=== PATIENT | male | born 1955 | race Caucasian/White ===

== ENCOUNTER 2017-02-05 12:10 | Inpatient (IN) | payer OTHER ==
[~2017-02-05] VITALS: Ht 195.6 cm; Wt 120.0 kg
[~2017-02-05 12:10] MED LIST: ADVIL200 MG PO; ATORVASTATIN CA40 MG PO; CEFTIN500 MG PO; CLOZARIL100 MG PO; COGENTIN0.5 MG PO; Cogentin PO; ELIQUIS5 MG PO; Habitrol,Nicoderm CQ TD; LEVAQUIN500 MG PO; LEVAQUIN750 MG PO; LITE COAT ASPI325 M1 PO; Levaquin PO; NAPROSYN500 MG PO; NICOTINE PATCH1 EAC2 TD; Remove Nicotine Patc TD; Tylenol Regular Stre PO; VENTOLIN HFA18 GM IH; ZOLOFT50 MG PO; Zoloft PO
[2017-02-05 12:38] LABS: HEMATOCRIT 45.7 % (38.0-50.0); MCH 29.7 PG (29.0-34.0); MCHC 33.5 G/DL (30.0-36.0); MCV 88.7 FL (86-99); MEAN PLAT.VOLUME 10.4 uM^3 (9.0-12.4); PLATELET COUNT 188 K/uL (156-360); RBC DIS.WIDTH-CV 13.1 % (11.8-14.6); RBC DIS.WIDTH-SD 42.6 % (39-53); RED BLOOD COUNT 5.15 M/uL (4.00-5.50); WHITE BLOOD COUNT 10.4 K/uL (4.1-10.2)
[2017-02-05 12:50] LABS: CHLORIDE 106 mEq/L (99-109); POTASSIUM 4.1 mEq/L (3.7-5.4); SODIUM 141 mEq/L (136-147)
[2017-02-05 12:51] LABS: GLUCOSE 146 mg/dL (70-99)
[2017-02-05 12:53] LABS: ANION GAP 11 MEQ/L (2-14)
[2017-02-05 12:55] LABS: GFR ESTIMATE (CALCULATED) > 59 mL/min/
[2017-02-05 12:56] LABS: UREA NITROGEN (BUN) 13 mg/dL (9-23)
[2017-02-05 13:00] LABS: TROP-I INTERPRETATION NEGATIVE; TROPONIN-I 0.15 ng/mL (0.0-0.30)
[2017-02-05 14:30] LABS: INTER. NORMALIZED RATIO 1.1; PROTHROMBIN TIME 12.1 SEC (10.2-12.9)
[2017-02-05 14:33] LABS: PTT 32.2 SEC (25-37)
[2017-02-05 16:21] LABS: TROP-I INTERPRETATION NEGATIVE; TROPONIN-I 0.18 ng/mL (0.0-0.30)
[2017-02-05 16:39] VITALS: BP 167/103
[2017-02-05 18:50] LABS: ADD MIUA? NO; BILIRUBIN NEGATIVE; BLOOD NEGATIVE; COLOR YELLOW ((YELLOW)); GLUCOSE (STRIP) NEGATIVE; KETONES NEGATIVE; LEUKOCYTES NEGATIVE; NITRITE NEGATIVE; PROTEIN (STRIP) NEGATIVE
[2017-02-05 18:52] LABS: SPECIFIC GRAVITY 1.074 (1.000-1.030)
[2017-02-05 19:43] VITALS: BP 144/100
[2017-02-05 23:48] VITALS: BP 140/94
[2017-02-06 02:45] VITALS: BP 140/89
[2017-02-06 04:21] LABS: HEMATOCRIT 41.8 % (38.0-50.0); MCH 29.6 PG (29.0-34.0); MCV 89.5 FL (86-99); MEAN PLAT.VOLUME 10.6 uM^3 (9.0-12.4); PLATELET COUNT 163 K/uL (156-360); RBC DIS.WIDTH-CV 13.2 % (11.8-14.6); RBC DIS.WIDTH-SD 42.8 % (39-53); RED BLOOD COUNT 4.67 M/uL (4.00-5.50); WHITE BLOOD COUNT 8.9 K/uL (4.1-10.2)
[2017-02-06 04:52] LABS: TROP-I INTERPRETATION NEGATIVE; TROPONIN-I 0.07 ng/mL (0.0-0.30)
[2017-02-06 04:55] LABS: CHLORIDE 107 mEq/L (99-109); POTASSIUM 4.7 mEq/L (3.7-5.4); SODIUM 140 mEq/L (136-147)
[2017-02-06 04:57] LABS: GLUCOSE 111 mg/dL (70-99)
[2017-02-06 04:58] LABS: ANION GAP 9 MEQ/L (2-14)
[2017-02-06 05:01] LABS: GFR ESTIMATE (CALCULATED) > 59 mL/min/; UREA NITROGEN (BUN) 15 mg/dL (9-23)
[2017-02-06 07:53] VITALS: BP 129/93
[2017-02-06 12:18] VITALS: BP 133/92
[2017-02-06 16:00] VITALS: BP 142/88
[2017-02-06 17:36] LABS: INTER. NORMALIZED RATIO 1.1; PROTHROMBIN TIME 11.8 SEC (10.2-12.9)
[2017-02-06 17:38] LABS: PTT 59.7 SEC (25-37)
[2017-02-06 20:00] VITALS: BP 130/92
[2017-02-06 23:55] VITALS: BP 140/92
[2017-02-07 04:00] VITALS: BP 124/97
[2017-02-07 05:36] LABS: HEMATOCRIT 40.5 % (38.0-50.0); MCH 30.6 PG (29.0-34.0); MCHC 34.6 G/DL (30.0-36.0); MCV 88.4 FL (86-99); MEAN PLAT.VOLUME 10.3 uM^3 (9.0-12.4); PLATELET COUNT 155 K/uL (156-360); RBC DIS.WIDTH-CV 13.2 % (11.8-14.6); RBC DIS.WIDTH-SD 42.6 % (39-53); RED BLOOD COUNT 4.58 M/uL (4.00-5.50); WHITE BLOOD COUNT 8.2 K/uL (4.1-10.2)
[2017-02-07 07:30] VITALS: BP 112/67
[2017-02-07] MEDS ORDERED: ADVAIR HFA120 INHALA IH (09:08)
[2017-02-07] MEDS ORDERED: NICOTINE PATCH1 EAC2 TD (09:08)
[2017-02-07] MEDS ORDERED: ELIQUIS5 MG PO (09:08)
[2017-02-07] MEDS ORDERED: ATORVASTATIN CA40 MG PO (09:08)
[2017-02-07] MEDS ORDERED: SPIRIVA RESPIMAT4 GM IH (09:08)
[2017-02-07] MEDS ORDERED: LOPRESSOR25 MG PO (09:09)
[2017-02-07] MEDS ORDERED: CEFDINIR300 MG PO (09:11)
[2017-02-07 09:59] LABS: INTERNAL CONTROL VALID? YES
[2017-02-07 11:16] VITALS: BP 112/67
== END 2017-02-07 15:05 | disposition home health service (06) | DRG 175 ==
LOC: EME 12:10 → EDOF 14:04 → 4EAST 14:04 → ENRESERV 14:07 → 4EAST 15:42
PROVIDERS: Emergency Medicine; Internal Medicine
DX: I26.92 Saddle embolus of pulmonary artery without acute cor pulmonale (principal); J18.9 Pneumonia, unspecified organism; I82.432 Acute embolism and thrombosis of left popliteal vein; I82.412 Acute embolism and thrombosis of left femoral vein; J44.0 Chronic obstructive pulmonary disease with (acute) lower respiratory infection; F31.30 Bipolar disorder, current episode depressed, mild or moderate severity, unspecified; I82.492 Acute embolism and thrombosis of other specified deep vein of left lower extremity; F41.9 Anxiety disorder, unspecified; F17.210 Nicotine dependence, cigarettes, uncomplicated; I10 Essential (primary) hypertension; I27.2 Other secondary pulmonary hypertension; Z91.14 Patient's other noncompliance with medication regimen; Z91.19 Patient's noncompliance with other medical treatment and regimen; Z86.711 Personal history of pulmonary embolism; Z79.01 Long term (current) use of anticoagulants; Z79.82 Long term (current) use of aspirin; Z80.8 Family history of malignant neoplasm of other organs or systems; Z80.0 Family history of malignant neoplasm of digestive organs
CPT/HCPCS: 36415; 71020; 71275; 80048; 81003; 84484; 85025; 85027; 85610; 85730; 87449; 93005; 93306; 93970; 94640 76; 99202; 99281; 99285; J0696; J7030; J7050